=== PATIENT | female | born 1990 | race Caucasian/White ===

== ENCOUNTER 2022-04-20 17:07 | Emergency (ER) | payer SELFPAY ==
[~2022-04-20] VITALS: Ht 160 cm; Wt 86.7 kg
[2022-04-20 17:29] VITALS: BP 144/93
--- NOTE | 2022-04-20 17:37 | NUR ---
[facility]: RIGHT EYE 20/50, LEFT EYE 20/70, BOTH EYES 20/50
[2022-04-20] MEDS ORDERED: ACETAMINOPHEN EXTRA STRENGTH 500 MG TAB PO ONE (17:55)
[2022-04-20] MEDS ORDERED: NACL 0.9% 1,000 ML IV ONE (17:55)
[2022-04-20] MEDS ORDERED: METOCLOPRAMIDE 10 MG/2 ML INJ VIAL IVP ONE (17:55)
--- NOTE | 2022-04-20 19:52 | NUR ---
PT AMBULATED TO ER BED 3
[2022-04-20] MEDS ORDERED: ACETAMINOPHEN EXTRA STRENGTH 500 MG TAB ONE (19:57)
[2022-04-20] MEDS ORDERED: METOCLOPRAMIDE 10 MG/2 ML INJ VIAL ONE (19:57)
--- NOTE | 2022-04-20 21:07 | NUR ---
Pt ambulated to restroom w/ steady gait.
[2022-04-20] MEDS ORDERED: FLUORESCEIN OPTH STRIP 1 MG ONE (21:32)
[2022-04-20] MEDS ORDERED: TETRACAINE HCL/PF 0.5% OPTH 4 ML BTL ONE (21:32)
[2022-04-20] MEDS ORDERED: TOMOMETER 1 DEV DEV MC ONE (21:33)
[2022-04-20] MEDS ORDERED: FLUORESCEIN OPTH STRIP 1 MG OP ONE (21:35)
[2022-04-20] MEDS ORDERED: TETRACAINE HCL/PF 0.5% OPTH 4 ML BTL OP ONE (21:35)
--- NOTE | 2022-04-20 22:10 | NUR ---
[facility]: BOTH 20/40 RIGHT 20/50 LEFT 20/40
[2022-04-20] MEDS ORDERED: ERYT5OIN51 OP (23:17)
--- NOTE | 2022-04-21 00:09 | NUR ---
MD MATTSON AT BEDSIDE ASSESSING PATIENT
[2022-04-21 00:44] VITALS: BP 138/78
--- NOTE | 2022-04-21 00:44 | NUR ---
Patient discharged with v/s stable. Written and verbal after care instructions given and explained. Patient alert, oriented and verbalized understanding of instructions. Ambulatory with steady gait. All questions addressed prior to discharge. ID band removed. Patient advised to follow up with PMD. Rx of ERYTHROMYCIN given.
--- NOTE | 2022-04-27 10:42 | NUR ---
LATE ENTRY- IV NORMAL SALINE DISCONTINUED AT 0044.
== END 2022-04-21 00:44 | disposition home or self-care (01) ==
LOC: MED 17:07
DX: H10.9 Unspecified conjunctivitis (principal); Z20.822 Contact with and (suspected) exposure to COVID-19; R51.9 Headache, unspecified
CPT/HCPCS: 70450; 70496; 70498; 81025; 87426; 96361; 96374; 99284; J2765; J7030; Q0163; Q9967